=== PATIENT | male | born 1985 | race Caucasian/White ===

== ENCOUNTER 2018-09-02 17:47 | Emergency (ER) | payer OTHER ==
[~2018-09-02] VITALS: Ht 177.8 cm; Wt 74.8 kg
[2018-09-02] MEDS ORDERED: Robaxin750 MG PO (18:10)
[2018-09-02] MEDS ORDERED: LEVSOD25 PO (18:10)
[2018-09-02] MEDS ORDERED: SILD50TA PO (18:10)
[2018-09-02] MEDS ORDERED: CYCL10 PO (18:10)
== END 2018-09-02 19:11 | disposition home or self-care (01) ==
LOC: ER 17:47
DX: S61.011A Laceration without foreign body of right thumb without damage to nail, initial encounter (principal); S61.213A Laceration without foreign body of left middle finger without damage to nail, initial encounter; F17.220 Nicotine dependence, chewing tobacco, uncomplicated; W45.8XXA Other foreign body or object entering through skin, initial encounter
CPT/HCPCS: 12002; 99282-25